=== PATIENT | female | born 1955 | race Caucasian/White ===

== ENCOUNTER 2016-10-15 07:49 | Emergency (ER) | payer BC, OTHER ==
[~2016-10-15] VITALS: Ht 162.6 cm; Wt 94.3 kg
[~2016-10-15 07:49] MED LIST: ASPCH81X PO; INSDGIPEN SC; LISI20TA PO; NVLGI SC; PRED1SUS OPR
[2016-10-15 07:55] VITALS: TEMP 36.6; Ht 162.6 cm; Wt 94.3 kg
[2016-10-15] MEDS ORDERED: CEFTRIAXONE SOD INJ 1 GM ADDVIAL IV STA (08:34)
[2016-10-15] MEDS ORDERED: SODIUM CHLORIDE 0.9% 1000ML 1,000 ML IV STA (08:34)
--- NOTE | 2016-10-15 08:42 | EMERGENCY ROOM VISIT NOTE ---
History First contact with patient: 08:21 Chief Complaint: BITE Stated Complaint: BUG BITE? RASH History of Present Illness The patient is a 61 year old female who presents to the Emergency Room with complaints of left leg infection. The patient states that approximately 3-4 days ago she was bitten by a fly at work. She does not recall the area of the body that was bitten. She states that yesterday she noticed some redness to the left anterior lower extremity. She states that her sugars have also been elevated. She denies any fevers. She denies any drainage from the area. She denies any pain in her chest or trouble breathing. She denies any vomiting. Review of Systems A 10 system review of systems was completed with positives and pertinent negatives listed in the HPI. Past Medical/Surgical History Medical Problems: (1) Appendectomy (2) CHOLELITH W CHOLECYS NEC (3) DIAB FALGUNI WO COMPL, TYPE II OR UNSPEC TYPE, NOT UNCNTRLD (4) HYPERTENSION NOS (5) Hysterectomy (6) MALIG TROY CORPUS UTERI Social History Smoking Status: Never Smoker Alcohol Use: none Marital Status: Occupation Status: employed Current/Historical Medications Scheduled Amlodipine (Norvasc), 5 MG PO QPM Aspirin (Aspirin Chewable), 81 MG PO QPM Atenolol (Tenormin), 25 MG PO HS Cephalexin Monohydrate (Keflex), 500 MG PO QID Doxycycline Hyclate (Vibramycin), 100 MG PO BID Insulin Aspart (Novolog Flexpen), SC WM Insulin Glargine (Lantus Solostar), 50 UT SC AMPM Lisinopril/Hctz (Zestoretic 20MG/12.5MG), 1 TAB PO DAILY Allergies Coded Allergies: Clarithromycin (Verified Adverse Reaction, Unknown, N&V - SEVERE, 10/15/16) Penicillins (Verified Adverse Reaction, Unknown, N/V PER DR. CHUA, 10/15/16 ) Physical Exam Vital Signs Date Time Temp Pulse Resp B/P (MAP) Pulse Ox O2 Delivery O2 Flow Rate FiO2 10/15/16 10:07 56 18 169/85 97 10/15/16 09:31 59 18 161/83 97 Room Air 10/15/16 07:55 36.6 71 20 143/83 99 Room Air Physical Exam VITALS: Vitals are noted on the nurse's note and reviewed by myself. Vital signs stable. GENERAL: This is a 61-year-old female, in no acute distress, nondiaphoretic, well-developed well-nourished. SKIN: There is an area of mild induration and erythema to the left anterior lower extremity that measures approximately 3 cm in diameter. There is a small open area in the center. There is no drainage or fluctuance. The patient does have surrounding erythema. There is mild warmth. There is no tenting of the skin. Capillary reflex less than 2 seconds. HEAD: Normocephalic atraumatic. EARS: The external ears are normal in appearance. EYES: Pupils equal round and reactive to light and accommodation. Conjunctivae without injection, sclerae without icterus. Extraocular movements intact. NOSE: Patent, turbinates without inflammation or discharge. MOUTH: Mucous membranes moist. Tonsils are not enlarged. Pharynx without erythema or exudate. Uvula midline. Airway patent. Tongue does not deviate. NECK: Supple without nuchal rigidity. No lymphadenopathy. No thyromegaly. Cervical spine is nontender. No JVD. HEART: Regular rate and rhythm without murmurs gallops or rubs. LUNGS: Clear to auscultation bilaterally without wheezes, rales or rhonchi. No retractions or accessory muscle use. MUSCULOSKELETAL: No muscle atrophy,or edema noted. There is cellulitis as noted above. There is no sign of abscess. There is tenderness to palpation just over the area of infection. Full range of motion without joint tenderness in all extremities. Normal gait. Strength 5/5 throughout. NEURO: Patient was alert and oriented to person place and time. No focal neurological deficits. Medical Decision & Procedures Laboratory Results 10/15/16 08:50 Red Blood Count 4.93, Mean Corpuscular Volume 84.2, Mean Corpuscular Hemoglobin 27.6, Mean Corpuscular Hemoglobin Concent 32.8, Mean Platelet Volume 8.7, Neutrophils (%) (Auto) 64.2, Lymphocytes (%) (Auto) 27.8, Monocytes (%) (Auto) 5.3, Eosinophils (%) (Auto) 2.0, Basophils (%) (Auto) 0.2, Neutrophils # (Auto) 5.99, Lymphocytes # (Auto) 2.60, Monocytes # (Auto) 0.50, Eosinophils # (Auto) 0.19, Basophils # (Auto) 0.02 10/15/16 08:50 Test 10/15/16 08:50 White Blood Count 9.35 K/uL (4.8-10.8) Red Blood Count 4.93 M/uL (4.2-5.4) Hemoglobin 13.6 g/dL (12.0-16.0) Hematocrit 41.5 % (37-47) Mean Corpuscular Volume 84.2 fL (80-100) Mean Corpuscular Hemoglobin 27.6 pg (25-34) Mean Corpuscular Hemoglobin Concent 32.8 g/dl (32-36) Platelet Count 361 K/uL (130-400) Mean Platelet Volume 8.7 fL (7.4-10.4) Neutrophils (%) (Auto) 64.2 % Lymphocytes (%) (Auto) 27.8 % Monocytes (%) (Auto) 5.3 % Eosinophils (%) (Auto) 2.0 % Basophils (%) (Auto) 0.2 % Neutrophils # (Auto) 5.99 K/uL (1.4-6.5) Lymphocytes # (Auto) 2.60 K/uL (1.2-3.4) Monocytes # (Auto) 0.50 K/uL (0.11-0.59) Eosinophils # (Auto) 0.19 K/uL (0-0.5) Basophils # (Auto) 0.02 K/uL (0-0.2) RDW Standard Deviation 42.5 fL (36.4-46.3) RDW Coefficient of Variation 13.9 % (11.5-14.5) Immature Granulocyte % (Auto) 0.5 % Immature Granulocyte # (Auto) 0.05 K/uL (0.00-0.02) Anion Gap 7.0 mmol/L (3-11) Est Creatinine Clear Calc Drug Dose 88.8 ml/min Estimated GFR () 99.5 Estimated GFR (Non- 85.9 BUN/Creatinine Ratio 18.4 (10-20) Calcium Level 9.6 mg/dl (8.5-10.1) Total Bilirubin 0.4 mg/dl (0.2-1) Aspartate Amino Transf (AST/SGOT) 12 U/L (15-37) Alanine Aminotransferase (ALT/SGPT) 18 U/L (12-78) Alkaline Phosphatase 115 U/L (45-117) Total Protein 7.4 gm/dl (6.4-8.2) Albumin 3.3 gm/dl (3.4-5.0) Globulin 4.1 gm/dl (2.5-4.0) Albumin/Globulin Ratio 0.8 (0.9-2) Medications Administered Medications (Trade) Dose Ordered Sig/Erickson Route Start Time Stop Time Status Last Admin Dose Admin Sodium Chloride 1,000 ml @ 999 mls/hr Q1H1M STAT IV 10/15/16 08:34 10/15/16 09:34 DC 10/15/16 08:53 999 MLS/HR Ceftriaxone Sodium (Rocephin Inj) 1 gm NOW STAT IV 10/15/16 08:34 10/15/16 08:36 DC 10/15/16 08:53 1 GM Doxycycline Hyclate (Vibramycin Cap) 100 mg ONE ONCE PO 10/15/16 08:45 10/15/16 08:46 DC 10/15/16 08:54 100 MG ED Course The patient was seen and examined. Previous visits were reviewed. The patient does not have a fever or leukocytosis. She does not have any significant electrolyte abnormality. The patient was given 1 g IV Rocephin and 100 mg oral doxycycline The patient appears to have a cellulitis of the left lower extremity. She is afebrile, nontoxic in appearance without leukocytosis. It is localized to the left lower extremity and is less than one half of the left lower extremity. The patient states that she has tolerated doxycycline very well in the past and would like to try that medication. I feel that this is a good choice given its good MRSA coverage and also coverage for potential Lyme disease. She will also be placed on Keflex. The patient should have a recheck in 24-48 hours either with her family doctor or in the emergency department. She should return to the emergency department sooner with any worsening redness, swelling, warmth, fevers. The case was discussed with Dr. Oneill who agrees with the assessment and treatment plan. Medical Decision The differential diagnosis includes cellulitis, abscess, foreign body, Lyme disease, among others Impression Primary Impression: Cellulitis, leg Departure Information Dispostion Home / Self-Care Condition GOOD Prescriptions Doxycycline Hyclate (VIBRAMYCIN) 100 Mg Cap 100 MG PO BID for 10 Days, #20 CAP Prov: Caitlyn Gerardo PA-C 10/15/16 Cephalexin Monohydrate (Keflex) 500 Mg Cap 500 MG PO QID for 10 Days, #40 CAP Prov: Caitlyn Gerardo PA-C 10/15/16 Referrals Wm Villa M.D. (PCP) Forms HOME CARE DOCUMENTATION FORM, IMPORTANT VISIT INFORMATION, Work Instructions Return To Work: 2 days Patient Instructions Cellulitis - [facility], [facility] Additional Instructions Return to the emergency department or see your family doctor in 24-48 hours for a recheck Return sooner with any worsening redness, swelling, warmth, drainage of pus, fevers Doxycycline and Keflex as prescribed, until finished You may start the doxycycline and Keflex this evening Work Instructions Return To Work: 2 days
[2016-10-15] MEDS ORDERED: DOXYCYCLINE HYCLATE 100 MG CAP PO ONE (08:45)
[2016-10-15 08:59] LABS: BASO % 0.2 %; BASO ABS # 0.02 K/uL (0-0.2); COMPLETE YES; HEMATOCRIT 41.5 % (37-47); IG% 0.5 %; LYMPH % 27.8 %; MEAN CELL VOLUME 84.2 fL (80-100); MEAN CORPUSCULAR HEMOGLOBIN 27.6 pg (25-34); MEAN CORPUSCULAR HGB CONC 32.8 g/dl (32-36); MEAN PLATELET VOLUME 8.7 fL (7.4-10.4); MONO % 5.3 %; NEUT % 64.2 %; PLATELET COUNT 361 K/uL (130-400); RED BLOOD COUNT 4.93 M/uL (4.2-5.4); WHITE BLOOD COUNT 9.35 K/uL (4.8-10.8)
[2016-10-15 09:24] LABS: BUN/CREATININE RATIO 18.4 (10-20); CALCIUM 9.6 mg/dl (8.5-10.1); CREATININE 0.76 mg/dl (0.60-1.20); POTASSIUM 3.7 mmol/L (3.5-5.1)
[2016-10-15 09:26] LABS: ALB/GLOB RATIO 0.8 (0.9-2)
[2016-10-15] MEDS ORDERED: CEPH500C PO (09:38)
[2016-10-15] MEDS ORDERED: DOXY100C PO (09:38)
[2016-10-15 10:07] VITALS: BP 169/85; PULSE 56; O2SAT 97
[2016-10-17] MEDS ORDERED: INSDGIPEN SC (08:11)
[2016-10-17] MEDS ORDERED: NVLGI/PEN SC (08:11)
[2016-10-17] MEDS ORDERED: LISI-787 PO (08:11)
[2016-10-17] MEDS ORDERED: ATEN-173 PO (09:06)
== END 2016-10-15 10:08 | disposition home or self-care (01) ==
LOC: C.EDB 07:50
DX: L03.116 Cellulitis of left lower limb (principal); E11.9 Type 2 diabetes mellitus without complications; I10 Essential (primary) hypertension; Z90.710 Acquired absence of both cervix and uterus; Z85.42 Personal history of malignant neoplasm of other parts of uterus; Z79.82 Long term (current) use of aspirin; Z79.4 Long term (current) use of insulin; Z79.899 Other long term (current) drug therapy

== ENCOUNTER 2016-10-17 14:26 | Emergency (ER) | payer BC, OTHER ==
[~2016-10-17] VITALS: Ht 162.6 cm; Wt 94.2 kg
[~2016-10-17 14:26] MED LIST changes: +ATEN-173 PO; +CEPH500C PO; +DOXY100C PO; +LISI-787 PO; -LISI20TA PO; -NVLGI SC; +NVLGI/PEN SC; -PRED1SUS OPR
[2016-10-17 14:29] VITALS: TEMP 36.7; Ht 162.6 cm; Wt 94.2 kg
[2016-10-17] MEDS ORDERED: ASPI81TA28 PO (15:06)
[2016-10-17] MEDS ORDERED: ONDANSETRON INJ 2 MG/ML 2 ML VIAL IV STA (15:22)
[2016-10-17] MEDS ORDERED: SODIUM CHLORIDE 0.9% 1000ML 1,000 ML IV STA (15:22)
[2016-10-17 15:26] VITALS: BP 149/100; PULSE 83; O2SAT 95
[2016-10-17] MEDS ORDERED: AMLO-110 PO (20:16)
--- NOTE | 2016-10-17 21:51 | EMERGENCY ROOM VISIT NOTE ---
ED Visit Note First contact with patient: 14:44 Chief Complaint: Cellulitis recheck. History of Present Illness: Ms. Oliveira is a 61-year-old white female who ambulates into the ED requesting recheck of her cellulitis. Patient was in the ED 2 days ago and was diagnosed with left lower leg cellulitis. She was given IV doses of antibiotics and prescribed doxycycline for home. She reports since leaving the ED she is feeling much better and has noted a great decrease in her cellulitis that was demarcated. She reports she is currently pain-free and has not seen any increasing signs of infection including red streaking, fevers, puslike drainage. She does report that she takes insulin for her diabetes and her blood sugars have been elevated at home. She also reports that she is not currently taking Lantus for her diabetes because there was an insurance problem which should be rectified tomorrow. Review of Systems: As noted above in history of present illness. Past Medical History: (1) Appendectomy (2) CHOLELITH W CHOLECYS NEC (3) DIAB FALGUNI WO COMPL, TYPE II OR UNSPEC TYPE, NOT UNCNTRLD (4) HYPERTENSION NOS (5) Hysterectomy (6) MALIG TROY CORPUS UTERI Current Medications: Medications Dose Route/Sig Max Daily Dose Days Date Category Dose Instructions Aspirin Ec (Aspirin) 81 Mg Tab 81 Mg PO QPM 10/17/16 Reported Vibramycin (Doxycycline Hyclate) 100 Mg Cap 100 Mg PO BID 10 10/15/16 Rx Keflex (Cephalexin Monohydrate) 500 Mg Cap 500 Mg PO QID 10 10/15/16 Rx Zestoretic 20MG/12.5MG (HCTZ/Lisinopril) Tab 1 Tab PO DAILY 10/15/16 Reported Lantus Solostar (Insulin Glargine) 100 Unit/Ml Inj 50 Units SC AMPM 10/15/16 Reported Novolog Flexpen (Insulin Aspart) 100 Units/Ml Inj 1 Dose SC WM 10/15/16 Reported COVERAGE DIRECTED BY [employer] Tenormin (Atenolol) 25 Mg Tab 25 Mg PO HS 02/08/16 Reported Norvasc (Amlodipine Besylate) 5 Mg Tab 5 Mg PO QPM 11/08/10 Reported Allergies to Medications: Clarithromycin, penicillin. Physical Examination: Vital Signs: Date Time Temp Pulse Resp B/P (MAP) Pulse Ox O2 Delivery O2 Flow Rate FiO2 10/17/16 15:26 83 18 149/100 95 10/17/16 14:29 36.7 76 20 166/90 97 Room Air GENERAL: 61-year-old female in no acute distress, nontoxic-appearing, afebrile and hemodynamically stable. NEUROLOGICAL: Awake, alert and oriented to person, place and time. Answering questions appropriately and following commands. Normal gait. Good hand eye coordination. No focal motor or sensory deficits. SKIN: Warm, dry and pink. Left Lower Leg: Shows a significant reduction from her line of demarcation to her area of erythema right now. There is no local lymphangitis. There is a small wound that is not draining any purulent material at this time. That area where the wound was mildly erythematous and slightly warmer to the touch than the rest of the leg. ED Course: Patient is assessed as noted above. Patient's medication list was reviewed. I did have a lengthy conversation about the patient's blood sugars including the recent stopping of Lantus and also infections that can increase her blood sugars. I did recommend that when she was back on her Lantus she should monitor her sugars and adjust her insulin levels for her elevated blood sugar. Patient was educated about today's findings and instructed on her treatment plan ; she verbalizes understanding and agreement with this plan. Clinical Impression: Wound recheck. Disposition: Patient discharged home in stable condition; prior to departure she was reassessed and subjectively reported he was still pain and symptom-free. Plan: Patient was encouraged to continue her current medications including her and Biaxin until complete. Patient was encouraged to contact her family physician and make an appointment for the 10th day of her antibiotic for recheck. Patient was encouraged to watch for worsening signs of infection and return to the ED for any signs of worsening infection or any additional concerns related to her blood sugar.
== END 2016-10-17 15:27 | disposition home or self-care (01) ==
LOC: C.EDB 14:28 → C.EDC 15:27
DX: Z04.8 Encounter for examination and observation for other specified reasons (principal); L03.116 Cellulitis of left lower limb; E11.9 Type 2 diabetes mellitus without complications; I10 Essential (primary) hypertension; Z85.42 Personal history of malignant neoplasm of other parts of uterus; Z90.710 Acquired absence of both cervix and uterus; Z79.4 Long term (current) use of insulin; Z79.82 Long term (current) use of aspirin